=== PATIENT | male | born 1965 | race African-American/Black ===

== ENCOUNTER 2024-09-04 13:42 | Emergency (ER) | payer OTHER ==
[~2024-09-04] VITALS: Ht 162.6 cm; Wt 53.2 kg
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
[2024-09-04] MEDS: CYCLOBENZAPRINE HCL 10 MG TAB PO ONE (15:29)
[2024-09-04] MEDS: ACETAMINOPHEN 325 MG TAB PO ONE (15:29)
[2024-09-04] MEDS: KETOROLAC TROMETH 30 MG/ML 1ML VIAL IM ONE (15:32)
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
[2024-09-04 17:55] VITALS: BP 146/95; PULSE 64; RESP 18; TEMP 97.8; O2SAT 95
== END 2024-09-04 17:56 | disposition home or self-care (01) ==
LOC: ER 13:42
DX: M54.12 Radiculopathy, cervical region (principal); F17.210 Nicotine dependence, cigarettes, uncomplicated; Z98.890 Other specified postprocedural states; V43.52XA Car driver injured in collision with other type car in traffic accident, initial encounter; Y93.I9 Activity, other involving external motion; Y92.488 Other paved roadways as the place of occurrence of the external cause; Y99.8 Other external cause status
CPT/HCPCS: 72040; 96372; 99283; J1885